=== PATIENT | female | born 1945 | race American Indian/Alaskan Native ===

== ENCOUNTER 2018-10-24 16:40 | Emergency (ER) | payer MEDICARE ==
[2018-10-24 17:41] VITALS: BMI 25.2
[2018-10-24 17:46] VITALS: BP 127/81; PULSE 87; RESP 18; TEMP 97.6
[2018-10-24] MEDS ORDERED: Sodium Chloride 0.9% 1,000 ML IV STA (18:15)
--- NOTE | 2018-10-24 18:27 | ED PDOC ---
Arrival/HPI - General Chief Complaint: Abdominal Pain Time Seen by Provider: 10/24/18 18:06 Historian: Patient - History of Present Illness Narrative History of Present Illness (Text): 10/24/18 18:15 Patient is a 72 y/o F, with past surgical history of cholecystectomy, presents to the ED for evaluation of nausea, vomiting, and diarrhea since 1 day. Patient informs visiting her PMD with the presented symptoms and was informed of possible stomach virus. Patient was advised to come to the ED for worsening symptoms. Patient informs persistent vomiting associated with an inability to tolerate PO intake while at home, prompting her to present to the ED for medical evaluation. Patient denies any other associated somatic complaints. Patient denies any dysuria, fevers, chills, headache, dizziness, chest pain, shortness of breath, cough, abdominal pain, dysuria, back pain, neck pain, or any other complaints. No recent travel outside [facility]. No recent antibiotic use. PMD: Dr. Hernandes 10/24/18 19:59 10/24/18 21:24 Time/Duration: 24 hours Symptom Onset: Gradual Symptom Course: Unchanged Activities at Onset: Light Context: Home Past Medical History - Provider Review Nursing Documentation Reviewed: Yes - Infectious Disease Hx of Infectious Diseases: None - Tetanus Immunization Tetanus Immunization: Unknown - Cardiac Hx Cardiac Disorders: Yes - Pulmonary Hx Respiratory Disorders: Yes Hx Pneumonia: Yes (in 2001) - Neurological Hx Neurological Disorder: No - HEENT Hx HEENT Disorder: Yes (WEARS RX GLASSES) - Renal Hx Renal Disorder: No - Endocrine/Metabolic Hx Endocrine Disorders: Yes Hx Diabetes Mellitus Type 2: Yes - Hematological/Oncological Hx Blood Disorders: No - Integumentary Hx Dermatological Disorder: No - Musculoskeletal/Rheumatological Hx Musculoskeletal Disorders: Yes - Gastrointestinal Hx Gastrointestinal Disorders: Yes Hx Diverticulitis: Yes Hx Gall Bladder Disease: Yes (CHOLECYSTECTOMY) Hx Gastroesophageal Reflux: Yes - Genitourinary/Gynecological Hx Genitourinary Disorders: No - Psychiatric Hx Psychophysiologic Disorder: No Hx Substance Use: No - Surgical History Hx Cholecystectomy: Yes - Anesthesia Hx Anesthesia Reactions: No Hx Malignant Hyperthermia: No - Suicidal Assessment Feels Threatened In Home Enviroment: No Family/Social History - Physician Review Nursing Documentation Reviewed: Yes Family/Social History: No Known Family HX Smoking Status: Never Smoked Hx Alcohol Use: No Hx Substance Use: No Allergies/Home Meds Allergies/Adverse Reactions: Allergies lactose Allergy (Verified 10/24/18 17:41) DIARRHEA Home Medications: Home Meds Medication Instructions Recorded Confirmed Aspirin [Aspir 81] 81 mg PO DAILY 03/04/13 10/24/18 Cholecalciferol [Vitamin D 1000 IU] 2,000 mg PO DAILY 10/24/18 10/24/18 RX: Glimepiride [Amaryl] 1 mg PO DAILY 10/24/18 10/24/18 RX: amLODIPine [Norvasc] 10 mg PO DAILY 10/24/18 10/24/18 Review of Systems - Review of Systems Constitutional: absent: Fevers Eyes: absent: Vision Changes Respiratory: absent: SOB, Cough Cardiovascular: absent: Chest Pain, Palpitations, Edema Gastrointestinal: Diarrhea, Nausea, Vomiting. absent: Abdominal Pain, Hematochezia, Hematemesis Genitourinary Female: absent: Dysuria, Urine Output Changes Musculoskeletal: absent: Back Pain, Neck Pain Skin: absent: Rash Neurological: absent: Headache, Dizziness Endocrine: absent: Polyuria Psychiatric: absent: Anxiety Physical Exam Vital Signs Reviewed: Yes Vital Signs Temp Pulse Resp BP Pulse Ox 10/24/18 17:44 97.6 F 87 18 127/81 100 Temperature: Afebrile Blood Pressure: Normal Pulse: Regular Respiratory Rate: Normal Appearance: Positive for: Well-Appearing, Non-Toxic, Comfortable Pain Distress: None Mental Status: Positive for: Alert and Oriented X 3 - Systems Exam Head: Present: Atraumatic, Normocephalic Pupils: Present: PERRL Extroacular Muscles: Present: EOMI Conjunctiva: Present: Normal Mouth: Present: Moist Mucous Membranes Respiratory/Chest: Present: Clear to Auscultation, Good Air Exchange. No: Respiratory Distress, Accessory Muscle Use Cardiovascular: Present: Regular Rate and Rhythm, Normal S1, S2. No: Murmurs Abdomen: No: Tenderness, Distention, Peritoneal Signs Upper Extremity: Present: Normal Inspection. No: Cyanosis, Edema Lower Extremity: Present: Normal Inspection. No: Edema Neurological: Present: GCS=15, CN II-XII Intact, Speech Normal Skin: Present: Warm, Dry, Normal Color. No: Rashes Psychiatric: Present: Alert, Oriented x 3, Normal Insight, Normal Concentration Medical Decision Making ED Course and Treatment: 10/24/18 18:15 Impression: 72 year old female presents to the ED for evaluation of nausea, vomiting, and diarrhea. Plan: -- Labs -- EKG -- Pepcid -- IV Fluids -- Toradol -- Zofran -- Reassess and disposition Prior Visits: Notes and results from previous visits were reviewed. Progress Notes: 10/24/18 18:40 EKG shows NSr at 85bpm with normal intervals and no ST changes 10/24/18 19:57 Labs reviewed. patient's abdomen continues to be soft NT/ND. Offered CT. Reports that feels that symptoms consistent with stomach virus as diagnosed by PMD. She feels better after IVF and is now tolerating po. She reports that she wants to go home and will return with any worsening symptoms or if she develops any abdominal pain. - Medication Orders Current Medication Orders: Sodium Chloride (Sodium Chloride 0.9%) 1,000 mls @ 999 mls/hr IV .Q1H1M STA Stop: 10/24/18 19:15 Discontinued Medications Famotidine (Pepcid) 20 mg IVP STAT STA Stop: 10/24/18 18:16 Ketorolac Tromethamine (Toradol) 15 mg IVP STAT STA Stop: 10/24/18 18:16 Ondansetron HCl (Zofran Inj) 4 mg IVP STAT STA Stop: 10/24/18 18:16 - Scribe Statement The provider has reviewed the documentation as recorded by the Scribe Mariely Garcia. All medical record entries made by the Scribe were at my direction and personally dictated by me. I have reviewed the chart and agree that the record accurately reflects my personal performance of the history, physical exam, medical decision making, and the department course for this patient. I have also personally directed, reviewed, and agree with the discharge instructions and disposition. Disposition/Present on Arrival - Present on Arrival Any Indicators Present on Arrival: No History of DVT/PE: No History of Uncontrolled Diabetes: No Urinary Catheter: No History of Decub. Ulcer: No History Surgical Site Infection Following: None - Disposition Have Diagnosis and Disposition been Completed?: Yes Diagnosis: Gastroenteritis Disposition: HOME/ ROUTINE Disposition Time: 19:59 Patient Plan: Discharge Patient Problems: Current Active Problems Problem Status Onset Gastroenteritis Acute Condition: GOOD Discharge Instructions (ExitCare): Gastroenteritis (ED) Additional Instructions: Follow-up with PMD within 2 days. Return to Emergency department if condition worsens. Prescriptions: Ondansetron ODT [Zofran ODT] 4 mg PO Q6 PRN #15 odt PRN Reason: Nausea/Vomiting Forms: [facility] ([place])
[2018-10-24 19:02] LABS: ALB/GLOB RATIO 1.4 (1.1-1.8); ALBUMIN 4.9 g/dL (3.0-4.8); ALT/SGPT 26 U/L (7-56); AST/SGOT 33 U/L (14-36); BLOOD UREA NITROGEN 18 mg/dL (7-21); CALCIUM 9.6 mg/dL (8.4-10.5); GFR NON-AFRICAN AMERICAN > 60; LIPASE 31 U/L (23-300)
[2018-10-24 19:07] LABS: GRAN # 10.05 (1.4-6.5); GRAN % 91.5 % (50.0-68.0); LYMPH # 0.8 (1.2-3.4); MEAN CELL VOLUME 85.3 fl (80.0-105.0); MEAN CORPUSCULAR HEMOGLOBIN 28.5 pg (25.0-35.0); MEAN CORPUSCULAR HGB CONC 33.4 g/dl (31.0-37.0); MEAN PLATELET VOLUME 9.8 fl (7.0-11.0); MONO # 0.2 (0.1-0.6); MONO % 1.5 % (1.0-6.0); PLATELET COUNT 232 10^3/uL (120.0-450.0); RBC 4.91 10^6/uL (3.5-6.1); RED CELL DISTRIBUTION WIDTH 14.1 % (11.5-14.5)
[2018-10-24 20:33] LABS: LYMPHOCYTE 8 % (22.0-35.0); MONOCYTE 1 % (1.0-6.0); NEUTROPHIL 91 % (50.0-70.0)
[2018-10-24 20:34] LABS: ANISOCYTOSIS SLIGHT
--- NOTE | 2018-10-24 21:48 | CARD ---
APPROVED REPORT Date of service: 10/24/2018 EKG Measurement Heart [id number] <Conclusion> Normal sinus rhythm Possible Left atrial enlargement Borderline ECG
[2018-10-24 21:54] VITALS: O2SAT 98
== END 2018-10-24 21:52 | disposition home or self-care (01) ==
LOC: ED 16:40
DX: K52.9 Noninfective gastroenteritis and colitis, unspecified (principal); E11.9 Type 2 diabetes mellitus without complications; K21.9 Gastro-esophageal reflux disease without esophagitis; Z90.49 Acquired absence of other specified parts of digestive tract
CPT/HCPCS: 80053; 83690; 83735; 84100; 85025; 93005; 96361; 96374; 96375; 99283; J1885; J2405; J7030

== ENCOUNTER 2019-01-16 12:19 | Outpatient (CLI) | payer MEDICARE | END 2019-01-16 12:20 | disposition home or self-care (01) | LOC: RAD 12:19 ==